=== PATIENT | male | born 1995 | race Caucasian/White ===

== ENCOUNTER 2017-05-23 08:48 | Emergency (ER) | payer OTHER ==
[~2017-05-23] VITALS: Ht 193 cm; Wt 103.3 kg
[~2017-05-23 08:48] MED LIST: SERT25TA PO
[2017-05-23 08:50] VITALS: TEMP 36.3; Ht 193 cm; Wt 103.3 kg
[2017-05-23] MEDS ORDERED: SODIUM CHLORIDE 0.9% 1000ML 1,000 ML IV STA (09:14)
[2017-05-23] MEDS ORDERED: MoRPHine SULFATE 10 MG/ML CARP/VIAL IV STA (09:14)
[2017-05-23] MEDS ORDERED: ONDANSETRON INJ 2 MG/ML 2 ML VIAL IV STA (09:14)
[2017-05-23 09:35] LABS: BASO % 0.5 %; BASO ABS # 0.03 K/uL (0-0.2); EOS % 2.7 %; EOS ABS # 0.16 K/uL (0-0.5); HEMOGLOBIN 14.9 g/dL (14.0-18.0); IG# 0.02 K/uL (0.00-0.02); LYMPH % 29.7 %; LYMPH ABS # 1.78 K/uL (1.2-3.4); MEAN CELL VOLUME 86.3 fL (80-100); MEAN CORPUSCULAR HEMOGLOBIN 29.9 pg (25-34); MEAN CORPUSCULAR HGB CONC 34.7 g/dl (32-36); MEAN PLATELET VOLUME 9.1 fL (7.4-10.4); MONO ABS # 0.48 K/uL (0.11-0.59); NEUT % 58.8 %; NEUT ABS # 3.53 K/uL (1.4-6.5); PLATELET COUNT 279 K/uL (130-400); RED CELL DISTRIBUTION WIDTH CV 12.3 % (11.5-14.5); RED CELL DISTRIBUTION WIDTH SD 39.1 fL (36.4-46.3)
[2017-05-23 09:43] LABS: ALBUMIN 4.4 gm/dl (3.4-5.0); CALCIUM 9.3 mg/dl (8.5-10.1); CREATININE 1.23 mg/dl (0.60-1.40); POTASSIUM 3.7 mmol/L (3.5-5.1)
[2017-05-23 09:46] LABS: TOTAL PROTEIN 7.5 gm/dl (6.4-8.2)
--- NOTE | 2017-05-23 09:55 | DIAGNOSTIC IMAGING REPORT ---
PA CHEST RADIOGRAPH AND UPRIGHT AND SUPINE AP RADIOGRAPHS OF THE ABDOMEN CLINICAL HISTORY: Abdominal pain. COMPARISON STUDY: Chest radiograph December 19, 2013. FINDINGS: Lung volumes are normal. Lungs are clear. No pneumothorax or pleural effusion is noted. Cardiac size is normal. Mediastinal contours are normal. There is no free air. The bowel gas pattern is normal. Pelvic calcifications statistically reflect phleboliths. IMPRESSION: 1. No free air or evidence of bowel obstruction. 2. No acute cardiopulmonary findings. Electronically signed by: Carlos Sevilla M.D. 05/23/2017 9:54 AM Dictated Date/Time: 05/23/2017 9:53 AM
[2017-05-23 10:19] VITALS: BP 105/60; PULSE 66; O2SAT 98
[2017-05-23] MEDS ORDERED: ESOM20CA PO (10:21)
--- NOTE | 2017-05-23 16:48 | EMERGENCY ROOM VISIT NOTE ---
ED Visit Note First contact with patient: 08:54 Chief Complaint: Abdominal pain. History of Present Illness: Mr. Del Cid is a 21 year-old white male who ambulates into the ED complaining of diffuse stabbing abdominal pain that started approximately 1 hour ago after waking. Since that time his pain has been constant. Historically patient reports he has a previous history of gastritis and the symptoms are similar to his previous. His last exacerbation was when he was in high school. He was on Nexium but has not taken it for the last 2 years. Patient reports a acute onset of severe diffuse abdominal pain throughout the central portion of the abdomen. He rates his discomfort 9/10. He does report his pain waxes and wanes in intensity. He reports he has a base level pain that is rated 8/10 but then the pain itself exacerbates and he rates his discomfort 9/10. He has not taken any medications prior to arrival at the hospital. Associated with his pain he reports he is nauseated but has not vomited. Patient denies fevers, chills, sweats, skin eruptions, skin color changes, upper respiratory tract symptoms, shortness of breath, chest pain, diarrhea, constipation, rectal bleeding, black/tarry stools, urinary symptoms, hematuria, back/flank pain. Review of Systems: As noted above in history of present illness. All body systems were reviewed and found to be negative as noted above. Past Medical History: As noted above and status post tonsillectomy. Current Medications: Patient denies. Allergies to Medications: Patient denies Social History: Patient is currently university student; he feels safe in his home environment; he admits to tobacco and alcohol use Physical Examination: Vital Signs: Date Time Temp Pulse Resp B/P (MAP) Pulse Ox O2 Delivery O2 Flow Rate FiO2 05/23/17 10:19 66 16 105/60 98 Room Air 05/23/17 09:32 71 05/23/17 09:27 63 16 149/73 98 Room Air 05/23/17 08:50 36.3 72 20 126/81 97 Room Air GENERAL: 21-year-old male in moderate distress due to pain, nontoxic-appearing, afebrile and hemodynamically stable. NEUROLOGICAL: Awake, alert and oriented to person, place and time. Answering questions appropriately and following commands. Normal gait. Good hand eye coordination. SKIN: Warm, dry and pink. No soft tissue eruptions or trauma noted. HEENT: Atraumatic and normocephalic. PERRLA. Sclera white and conjunctiva pink. Oral cavity moist and pink. Pharynx is nonerythematous or edematous. Speech normal. No lymphadenopathy. Trachea midline. No jugular venous distention. BACK: No tenderness over the bony spine. No CVA tenderness. THORAX: Lungs sounds are clear to auscultation and equal bilaterally with symmetrical chest wall. No wheezing, rales or rhonchi. No crepitus, tenderness , subcutaneous air or deformities noted. HEART: Regular rate and rhythm. No gallops, rubs or murmurs are appreciated. ABDOMEN: Flat, soft and nontender. Positive bowel sounds in all quadrants. No guarding, rigidity or organomegaly. EXTREMITIES: Moves all extremities well on command and with purpose. All distal neurovascular statuses are intact and equal bilaterally. ED Course: Patient is assessed as noted above. Laboratory Testing: Test 05/23/17 09:05 Range/Units White Blood Count 6.00 4.8-10.8 K/uL Red Blood Count 4.98 4.7-6.1 M/uL Hemoglobin 14.9 14.0-18.0 g/dL Hematocrit 43.0 42-52 % Mean Corpuscular Volume 86.3 80-100 fL Mean Corpuscular Hemoglobin 29.9 25-34 pg Mean Corpuscular Hemoglobin Concent 34.7 32-36 g/dl Platelet Count 279 130-400 K/uL Mean Platelet Volume 9.1 7.4-10.4 fL Neutrophils (%) (Auto) 58.8 % Lymphocytes (%) (Auto) 29.7 % Monocytes (%) (Auto) 8.0 % Eosinophils (%) (Auto) 2.7 % Basophils (%) (Auto) 0.5 % Neutrophils # (Auto) 3.53 1.4-6.5 K/uL Lymphocytes # (Auto) 1.78 1.2-3.4 K/uL Monocytes # (Auto) 0.48 0.11-0.59 K/uL Eosinophils # (Auto) 0.16 0-0.5 K/uL Basophils # (Auto) 0.03 0-0.2 K/uL RDW Standard Deviation 39.1 36.4-46.3 fL RDW Coefficient of Variation 12.3 11.5-14.5 % Immature Granulocyte % (Auto) 0.3 % Immature Granulocyte # (Auto) 0.02 0.00-0.02 K/uL Urine Color YELLOW Urine Appearance CLEAR CLEAR Urine pH 6.0 4.5-7.5 Urine Specific [place] 1.025 1.000-1.030 Urine Protein NEG NEG Urine Glucose (UA) NEG NEG Urine Ketones NEG NEG Urine Occult Blood NEG NEG Urine Nitrite NEG NEG Urine Bilirubin NEG NEG Urine Urobilinogen NEG NEG Urine Leukocyte Esterase NEG NEG Sodium Level 138 136-145 mmol/L Potassium Level 3.7 3.5-5.1 mmol/L Chloride Level 103 98-107 mmol/L Carbon Dioxide Level 26 21-32 mmol/L Anion Gap 8.0 3-11 mmol/L Blood Urea Nitrogen 19 7-18 mg/dl Creatinine 1.23 0.60-1.40 mg/dl Est Creatinine Clear Calc Drug Dose 116.6 ml/min Estimated GFR () 96.7 Estimated GFR (Non- 83.4 BUN/Creatinine Ratio 15.6 10-20 Random Glucose 90 70-99 mg/dl Calcium Level 9.3 8.5-10.1 mg/dl Total Bilirubin 0.6 0.2-1 mg/dl Direct Bilirubin 0.2 0-0.2 mg/dl Aspartate Amino Transf (AST/SGOT) 11 15-37 U/L Alanine Aminotransferase (ALT/SGPT) 21 12-78 U/L Alkaline Phosphatase 78 45-117 U/L Total Protein 7.5 6.4-8.2 gm/dl Albumin 4.4 3.4-5.0 gm/dl Lipase 70 73-393 U/L Acute Abdominal X-Ray Series: Was read by myself and the radiologist and shows a PA chest shows no infiltrates, effusions or pneumothorax. Normal heart silhouette and bony anatomy. No free air under the diaphragm. Abdominal component once again shows no free air there does not appear to be any obstructive changes. Patient was hydrated with normal saline and he received 6 mg of morphine IV and 4 mg of Zofran IV. Patient was reassessed multiple times during her stay in the emergency department. Patient's case was reviewed with Dr. Leahy; we agreed on diagnostic approach, treatment, disposition and plan. Patient was educated about today's findings and instructed on his treatment plan ; he verbalized understanding and agreement with this plan. Just prior to discharge patient's mother was called and I was given permission by the patient to speak to his mother and I reviewed the case with her and his laboratory findings. Clinical Impression: Acute gastritis. Decision-Making: Initially my differential diagnosis I considered acute gastritis, perforated viscus, appendicitis, constipation and other causes. Disposition: Patient discharged home in stable condition accompanied by a friend ; prior to departure he was reassessed and subjectively reported he was feeling much better and rated his discomfort 2/10. Plan: Patient was encouraged use 20 mg of Nexium once a day. Patient was encouraged you 650 mg of acetaminophen as needed for pain and to avoid NSAID medications. Patient was encouraged to stay well-hydrated with increased clear fluids. Patient was encouraged to avoid gastrointestinal irritants including the NSAID medications, alcohol, tobacco, caffeine, spicy food and mints. Patient was encouraged to follow-up with [facility] for recheck in 2-3 days. Patient was encouraged to contact his PCP for follow-up at home including a possible EGD. Patient was encouraged return the ED for worsening/uncontrolled pain, vomiting, bloody vomitus, fevers, bloody stools or any new/concerning symptoms.
== END 2017-05-23 10:38 | disposition home or self-care (01) ==
LOC: C.EDB 08:50
DX: K29.00 Acute gastritis without bleeding (principal); Z90.89 Acquired absence of other organs; Z72.0 Tobacco use